=== PATIENT | female | born 1975 | race Caucasian/White ===

== ENCOUNTER 2017-05-29 07:34 | Day surgery (SDC) | payer BC ==
[~2017-05-29 07:34] MED LIST: Lidocaine 1%/Sod Bicarbonate in NS 8.4% 1 ML Syringe PRN; Sodium Chloride 0.9% 10 ML Syringe FLUSH PRN
[2017-05-29] MEDS ORDERED: Ondansetron 4 MG/2 ML SDV ONE (07:35)
[2017-05-29] MEDS ORDERED: Propofol 200 MG/20 ML SDV ONE ×2 (07:35→09:20)
[2017-05-29] MEDS ORDERED: Lactated Ringers 1,000 ML ONE (07:35)
[2017-05-29] MEDS ORDERED: Rocuronium 50 MG/5 ML Vial ONE (07:35)
[2017-05-29] MEDS ORDERED: Lidocaine 1% 4 ML ONE (07:36)
[2017-05-29] MEDS ORDERED: fentaNYL 250 MCG/5 ML SDV ONE (07:36)
[2017-05-29] MEDS ORDERED: Midazolam 1 MG/ML 2 ML SDV ONE (07:36)
[2017-05-29] MEDS ORDERED: Dexamethasone 4 MG/ML 5 ML MDV ONE (07:36)
[2017-05-29] MEDS ORDERED: Clindamycin Phosphate 900 MG in Sodium Chloride 0.9% 100 ML IV ONE (08:00)
[2017-05-29] MEDS: Lactated Ringers 1,000 ML IV SCH ×2 (08:05→12:25)
[2017-05-29] MEDS ORDERED: DEXTROSE 5% IV ONE ×2 (08:45)
[2017-05-29] MEDS ORDERED: GENTAMICIN IV ONE ×2 (08:45)
[2017-05-29] MEDS ORDERED: WATER IV ONE ×2 (08:45)
[2017-05-29] MEDS ORDERED: Scopolamine 1.5 MG Transdermal Patch TRDERM ONE (08:55)
--- NOTE | 2017-05-29 08:57 | PCM.PREANE ---
Preanesthetic Assessment - Anesthesia/Transfusion/Family Hx Anesthesia History: Prior Anesthesia Without Reaction Family History of Anesthesia Reaction: No Transfusion History: No Prior Transfusion(s) Intubation History: Unknown - Physical Assessment NPO Status Date: 05/29/17 NPO Status Time: 23:00 O2 Sat by Pulse Oximetry: 97 Respiratory Rate: 16 Vital Signs: Last Vital Signs Temp 37.2 C 05/29/17 07:40 Pulse 74 05/29/17 07:40 Resp 16 05/29/17 07:40 BP 142/78 H 05/29/17 07:40 Pulse Ox 97 05/29/17 07:40 Height: 1.73 m Weight: 99.79 kg ASA Class: 2 Mental Status: Alert & Oriented x3 Airway Class: Mallampati = 2 Dentition: Reports: Normal Dentition Thyro-Mental Finger Breadths: 3 Mouth Opening Finger Breadths: 3 ROM/Head Extension: Full Lungs: Clear to Auscultation, Normal Respiratory Effort Cardiovascular: Regular Rate, Regular Rhythm - Lab Values: Laboratory Last Values WBC 7.68 K/mm3 (3.98-10.04) 05/27/17 08:08 RBC 4.47 M/mm3 (3.98-5.22) 05/27/17 08:08 Hgb 13.9 gm/L (11.2-15.7) 05/27/17 08:08 Hct 40.8 % (34.1-44.9) 05/27/17 08:08 MCV 91.3 fl (79.4-94.8) 05/27/17 08:08 MCH 31.1 pg (25.6-32.2) 05/27/17 08:08 MCHC 34.1 g/dl (32.2-35.5) 05/27/17 08:08 RDW Std Deviation 40.0 fL (36.4-46.3) 05/27/17 08:08 Plt Count 253 K/mm3 (182-369) 05/27/17 08:08 MPV 10.1 fl (9.4-12.3) 05/27/17 08:08 Neut % (Auto) 60.2 % (34.0-71.1) 05/27/17 08:08 Lymph % (Auto) 29.8 % (19.3-51.7) 05/27/17 08:08 [place] % (Auto) 8.2 % (4.7-12.5) 05/27/17 08:08 Eos % (Auto) 1.3 (0.7-5.8) 05/27/17 08:08 Baso % (Auto) 0.5 % (0.1-1.2) 05/27/17 08:08 Neut # (Auto) 4.62 K/mm3 (1.56-6.13) 05/27/17 08:08 Lymph # (Auto) 2.29 K/mm3 (1.18-3.74) 05/27/17 08:08 [place] # (Auto) 0.63 K/mm3 (0.24-0.36) H 05/27/17 08:08 Eos # (Auto) 0.10 K/mm3 (0.04-0.36) 05/27/17 08:08 Baso # (Auto) 0.04 K/mm3 (0.01-0.08) 05/27/17 08:08 Creatinine 0.9 mg/dL (0.55-1.02) 05/27/17 08:08 Est Cr Clr Drug Dosing TNP 05/27/17 08:08 Estimated GFR (MDRD) > 60 mL/min (>60) 05/27/17 08:08 Urine Color Yellow (Yellow) 05/27/17 08:08 Urine Appearance Clear (Clear) 05/27/17 08:08 Urine pH 6.5 (5.0-8.0) 05/27/17 08:08 Ur Specific [place] 1.020 (1.005-1.030) 05/27/17 08:08 Urine Protein Negative (Negative) 05/27/17 08:08 Urine Glucose (UA) Negative (Negative) 05/27/17 08:08 Urine Ketones 4+ (Negative) H 05/27/17 08:08 Urine Occult Blood Negative (Negative) 05/27/17 08:08 Urine Nitrite Negative (Negative) 05/27/17 08:08 Urine Bilirubin 2+ (Negative) H 05/27/17 08:08 Urine Urobilinogen 0.2 (0.2-1.0) 05/27/17 08:08 Ur Leukocyte Esterase Trace (Negative) H 05/27/17 08:08 Urine HCG, Qual Negative (NEGATIVE) 05/27/17 08:08 Blood Type O POSITIVE 05/27/17 08:08 Gel Antibody Screen Negative 05/27/17 08:08 - Allergies Allergies/Adverse Reactions: Allergies Allergy/AdvReac Type Severity Reaction Status Date / Time Cephalosporins Allergy Other Verified 05/28/17 13:32 - Acknowledgements Anesthesia Type Planned: General Anesthesia Pt an Appropriate Candidate for the Planned Anesthesia: Yes Alternatives and Risks of Anesthesia Discussed w Pt/Guardian: Yes Pt/Guardian Understands and Agrees with Anesthesia Plan: Yes PreAnesthesia Questionnaire HEENT History: Reports: Allergic Rhinitis Cardiovascular History: Reports: None Respiratory History: Reports: None Gastrointestinal History: Reports: None Genitourinary History: Reports: 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 (See Below) Other OB/BYN History: , breast asymmetry, irregular menses, menorrhagia Musculoskeletal History: Reports: None Neurological History: Reports: None Psychiatric History: Reports: Depression Endocrine/Metabolic History: Reports: None Hematologic History: Reports: None Immunologic History: Reports: None Oncologic (Cancer) History: Reports: None Dermatologic History: Reports: None - Past Surgical History Head Surgeries/Procedures: Reports: None HEENT Surgical History: Reports: None Cardiovascular Surgical History: Reports: None Respiratory Surgical History: Reports: None GI Surgical History: Reports: Cholecystectomy Endocrine Surgical History: Reports: None Neurological Surgical History: Reports: None Musculoskeletal Surgical History: Reports: None Oncologic Surgical History: Reports: None Dermatological Surgical History: Reports: None - SUBSTANCE USE Smoking Status *Q: Never Smoker Recreational Drug Use History: No - HOME MEDS Home Medications: Home Meds Rizatriptan Benzoate [Rizatriptan] 10 mg PO ASDIRECTED PRN 05/28/17 [History] Sertraline HCl [Sertraline HCl] 75 mg PO DAILY 05/28/17 [History] - CURRENT (IN HOUSE) MEDS Current Meds: Current Medications Lactated Ringer's (Ringers, Lactated) 1,000 mls @ 125 mls/hr IV ASDIRECTED ETSEFANI Stop: 05/29/17 23:00 Last Admin: 05/29/17 08:05 Dose: 125 mls/hr Gentamicin Sulfate 390 mg/ (Dextrose/Water) 109.75 mls @ 109.75 mls/hr IV ONETIME ONE Stop: 05/29/17 09:44 Lidocaine/Sodium Bicarbonate (Buffered Lidocaine 1% In Ns 8.4%) 0.25 ml .XX ONETIME PRN PRN Reason: Prior to IV Start Stop: 05/29/17 18:00 Last Admin: 05/29/17 08:04 Dose: 0.25 ml Sodium Chloride (Saline Flush) 10 ml FLUSH ASDIRECTED PRN PRN Reason: Keep Vein Open Stop: 05/29/17 18:00 Discontinued Medications Dexamethasone (Dexamethasone) Confirm Administered Dose 20 mg .ROUTE .STK-MED ONE Stop: 05/29/17 07:37 Fentanyl (Sublimaze) Confirm Administered Dose 250 mcg .ROUTE .STK-MED ONE Stop: 05/29/17 07:37 Clindamycin Phosphate 900 mg/ (Sodium Chloride) 106 mls @ 212 mls/hr IV ONETIME ONE Stop: 05/29/17 08:29 Lactated Ringer's (Ringers, Lactated) Confirm Administered Dose 1,000 mls @ as directed .ROUTE .STK-MED ONE Stop: 05/29/17 07:36 Lidocaine HCl (Xylocaine-Mpf 1%) Confirm Administered Dose 4 mls @ as directed .ROUTE .STK-MED ONE Stop: 05/29/17 07:37 Lidocaine/Epinephrine (Xylocaine 1% With Epinephrine 1:100,000) Confirm Administered Dose 20 ml .ROUTE .STK-MED ONE Stop: 05/29/17 08:26 Midazolam HCl (Versed 1 Mg/Ml) Confirm Administered Dose 2 mg .ROUTE .STK-MED ONE Stop: 05/29/17 07:37 Ondansetron HCl (Zofran) Confirm Administered Dose 4 mg .ROUTE .STK-MED ONE Stop: 05/29/17 07:36 Propofol (Diprivan 20 Ml) Confirm Administered Dose 200 mg .ROUTE .STK-MED ONE Stop: 05/29/17 07:36 Rocuronium [place] (Zemuron) Confirm Administered Dose 50 mg .ROUTE .STK-MED ONE Stop: 05/29/17 07:36 Sodium Chloride (Normal Saline) Confirm Administered Dose 50 ml .ROUTE .STK-MED ONE Stop: 05/29/17 08:27
[2017-05-29] MEDS: Sodium Chloride 0.9% 50 ML SDV ONE ×2 (09:40→09:46)
[2017-05-29] MEDS: Lidocaine 1% with EPINEPHrine 1:100,000 20 ML MDV ONE ×2 (09:40→09:46)
[2017-05-29] MEDS ORDERED: HYDROmorphone 0.5 MG/0.5 ML Syringe IVPUSH PRN (09:58)
[2017-05-29] MEDS ORDERED: fentaNYL 100 MCG/2 ML SDV IVPUSH PRN (09:58)
[2017-05-29] MEDS ORDERED: Haloperidol Lactate 5 MG/ML SDV IVPUSH PRN (09:58)
[2017-05-29] MEDS ORDERED: HYDROmorphone 1 MG/ML Syringe ONE (09:59)
[2017-05-29] MEDS ORDERED: Ketorolac 30 MG/ML SDV ONE (10:24)
[2017-05-29] MEDS ORDERED: Neostigmine Methylsulfate 10 MG/10 ML MDV ONE (10:25)
--- NOTE | 2017-05-29 10:44 | PCM.POSTAN ---
POST ANESTHESIA ASSESSMENT - MENTAL STATUS Mental Status: Alert, Oriented - VITAL SIGNS Pulse Rate: 88 SaO2: 97 Resp Rate: 10 Blood Pressure: 126/79 Temperature: 36.5 C - RESPIRATORY Respiratory Status: Respiratory Rate WNL, Airway Patent, O2 Saturation Stable - CARDIOVASCULAR CV Status: Pulse Rate WNL, Blood Pressure Stable - GASTROINTESTINAL GI Status: No Symptoms - PAIN Pain Score: 0 - POST OP HYDRATION Hydration Status: Adequate & Stable
[2017-05-29] MEDS ORDERED: Ondansetron 4 MG/2 ML SDV IVPUSH PRN (11:15)
[2017-05-29] MEDS ORDERED: Acetaminophen/oxyCODONE 325-5 MG Tab PO PRN (11:15)
--- NOTE | 2017-05-29 11:23 | PCM.OPNOTE ---
- General Post-Op/Procedure Note Date of Surgery/Procedure: 05/29/17 Operative Procedure(s): Total vaginal hysterectomy with bilateral salpingectomy. Excision of vulvar lesion Pre Op Diagnosis: Menorrhagia, irregular uterine bleeding Post-Op Diagnosis: Same, vulvar lesion Anesthesia Technique: General ET Tube Other Anesthesia Type: Lidocaine quarter percent with [id number] mL local Primary Surgeon: Justino Saleh Secondary Surgeon: Andrei Jeffrey Anesthesia Provider: Florencia Bryan Reason Cork Mixer Was Necessary: Retraction, patient safety, quality of care Role of Cork Mixer: Retraction Fluid Replacement, Intraop: 1,000 EBL in mLs: 100 Complications: None Condition: Good Free Text/Narrative:: Surgery duration 35 minutes Procedure: The patient was placed in supine position on the operating table. General endotracheal anesthesia was accomplished. After positioning, and adequate prep and drape, the procedure was then performed. Sterile speculum was placed in the vagina and cervix was visualized. Cervix was injected with lidocaine quarter percent with [id number] mL used. A full circumference incision was made in the cervical epithelium. The bladder was pushed well back off cervix. Posterior cul-de-sac was then entered sharply without problems. Left uterosacral was crossclamped with a LigaSure vessel closure system. The left uterosacral and then the right uterosacral ligament pedicles were developed using the Enseal system. The anterior cul-de-sac was then entered without problems and the uterine vasculature, cardinal ligament and broad ligament then developed using Enseal vessel closure system. The uterus was inverted at this time and upper broad ligament fallopian tube pedicles were crossclamped with Katy clamps. Specimen was totally removed. Both these pedicles were then secured with a Katy stitch of #1 Vicryl. Left and right fallopian tube was normal in appearance.. Using Enseal vessel closure system each of the tubes was then removed and sent with the specimen. Both ovaries were removed per patient's desire. The patient was found to be hemostatically intact at this time. A pursestring suture was and placed in the peritoneal cavity externalizing pedicles in case of bleeding. Vaginal cuff was sutured for hemostatic reasons with a running locked suture of 0 Monocryl from the 2 o'clock position to the 10 o'clock position posteriorly. Vaginal cuff was then closed from right to left side with a running locked suture of 0 Monocryl. Patient was returned to supine position and awakened from general endotracheal anesthesia. She tolerated the procedure was then left the operating room in satisfactory condition.
[2017-05-29 14:44] VITALS: BP 96/60
== END 2017-05-29 14:30 | disposition home or self-care (01) ==
LOC: JD.SDS 07:34
PROVIDERS: ATTEND Obstetrics & Gynecology
DX: N72 Inflammatory disease of cervix uteri (principal); N88.0 Leukoplakia of cervix uteri; D04.8 Carcinoma in situ of skin of other sites; N88.8 Other specified noninflammatory disorders of cervix uteri; D25.1 Intramural leiomyoma of uterus; D25.0 Submucous leiomyoma of uterus; N83.8 Other noninflammatory disorders of ovary, fallopian tube and broad ligament; Z88.1 Allergy status to other antibiotic agents; F32.9 Major depressive disorder, single episode, unspecified; G47.30 Sleep apnea, unspecified; Z79.899 Other long term (current) drug therapy
CPT/HCPCS: 11621; 36415; 58262; 81003; 81025; 82565; 85025; 86850; 86900; 86901; A9270; J1100; J1170; J1580; J1885; J2250; J2405; J2710; J3010; J7030; J7060; J7120; 00840; J2704

== ENCOUNTER 2021-04-06 22:44 | Emergency (ER) | payer OTHER ==
[2021-04-06 22:57] VITALS: BP 127/85; PULSE 106
--- NOTE | 2021-04-07 00:18 | EDM.PDOC ---
ED HPI GENERAL MEDICAL PROBLEM - General Chief Complaint: Respiratory Problem Stated Complaint: COVID+ Time Seen by Provider: 04/07/21 00:10 Source of Information: Reports: Patient History Limitations: Reports: No Limitations - History of Present Illness INITIAL COMMENTS - FREE TEXT/NARRATIVE: Patient is a 45-year-old female with a history of COVID-19 infection presents with a chief complaint of fevers, body aches, fatigue, shortness of breath. Patient states she has had the symptoms since 1 week ago Thursday. She feels like she is not getting any better. Patient denies any associated chest pain. Reports the body aches are diffuse. She has been using some Tylenol with only mild relief. Patient states shortness of breath seems to be getting worse but denies any pain with inspiration or exertional symptoms. Patient has no swelling in her legs or history of DVT/PE. No prior treatment for COVID-19. Patient is unvaccinated against COVID-19. Generalized Pain Score (Numeric/FACES): 8 - Related Data Allergies Allergy/AdvReac Type Severity Reaction Status Date / Time Cephalosporins Allergy Severe Other Verified 04/06/21 22:57 Home Meds: Home Meds Sertraline HCl 100 mg PO DAILY 05/28/17 [History] Ibuprofen 600 mg PO Q4H PRN #30 tablet 05/29/17 [Rx] SUMAtriptan succinate [Imitrex] 100 mg PO DAILY PRN 04/06/21 [History] Benzonatate [Tessalon Perle] 100 mg PO BID #10 capsule 04/07/21 [Rx] Past Medical History HEENT History: Reports: Allergic Rhinitis Cardiovascular History: Reports: None Respiratory History: Reports: None Gastrointestinal History: Reports: None Genitourinary History: Reports: 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) Other CAT CRACKER OPERATOR History: , breast asymmetry, irregular menses, menorrhagia Musculoskeletal History: Reports: None Neurological History: Reports: Migraines Psychiatric History: Reports: Depression Endocrine/Metabolic History: Reports: Obesity/BMI 30+ Hematologic History: Reports: None Immunologic History: Reports: None Oncologic (Cancer) History: Reports: None Dermatologic History: Reports: None - Infectious Disease History Infectious Disease History: Reports: Novel Coronavirus - Past Surgical History GI Surgical History: Reports: Cholecystectomy Social & Family History - Tobacco Use Tobacco Use Status *Q: Never Tobacco User - Caffeine Use Caffeine Use: Reports: Coffee - Recreational Drug Use Recreational Drug Use: No ED ROS GENERAL - Review of Systems Review Of Systems: See Below Free Text/Narrative/Comment: In addition to that documented in the HPI above, the additional ROS was obtained: Constitutional: Per HPI Eyes: Denies vision changes ENMT: Denies sore throat CV: Denies chest pain Resp: Per HPI GI: Mild diarrhea : Denies painful urination MSK: Denies recent trauma Skin: Denies new rashes Neuro: Denies new numbness or tingling or weakness Endocrine: Denies unexpected weight loss Heme: Denies bleeding disorders ED EXAM, GENERAL - Physical Exam Exam: See Below Free Text/Narrative:: I have reviewed the triage vital signs Const: Well nourished, well developed, appears stated age Eyes: Pupils Equal and reactive to light bilaterally, no conjunctival injection HENT: No signs of trauma or swelling, Neck supple without meningismus CV: Mild tachycardia with regular rhythm, Warm, well-perfused extremities RESP: Unlabored respiratory effort GI: soft, non-tender, non-distended, no masses MSK: No gross deformities appreciated Skin: Warm, dry. No rashes Neuro: Alert, mold sheet cleaner II-XII grossly intact. Sensation and motor function of extremities grossly intact. Psych: Appropriate mood and affect. Course - Vital Signs Last Recorded V/S: Last Vital Signs Temp 36.6 C 04/06/21 22:55 Pulse 106 H 04/06/21 22:55 Resp 20 04/06/21 22:55 BP 127/85 04/06/21 22:55 Pulse Ox 91 L 04/06/21 22:55 - Orders/Labs/Meds Orders: Active Orders 24 hr Category Date Time Status Chest 1V Frontal [CR] Stat Exams 04/06/21 23:06 Taken Labs: Laboratory Tests 04/06/21 04/06/21 04/06/21 Range/Units 23:21 23:21 23:21 WBC 6.54 (3.98-10.04) K/mm3 RBC 4.48 (3.98-5.22) M/mm3 Hgb 13.8 (11.2-15.7) gm/dl Hct 39.9 (34.1-44.9) % MCV 89.1 (79.4-94.8) fl MCH 30.8 (25.6-32.2) pg MCHC 34.6 (32.2-35.5) g/dl RDW Std Deviation 40.0 (36.4-46.3) fL Plt Count 156 L (182-369) K/mm3 MPV 10.0 (9.4-12.3) fl Neut % (Auto) 74.1 H (34.0-71.1) % Lymph % (Auto) 21.1 (19.3-51.7) % [place] % (Auto) 4.3 L (4.7-12.5) % Eos % (Auto) 0 L (0.7-5.8) Baso % (Auto) 0.2 (0.1-1.2) % Neut # (Auto) 4.85 (1.56-6.13) K/mm3 Lymph # (Auto) 1.38 (1.18-3.74) K/mm3 [place] # (Auto) 0.28 (0.24-0.36) K/mm3 Eos # (Auto) 0.00 L (0.04-0.36) K/mm3 Baso # (Auto) 0.01 (0.01-0.08) K/mm3 PT 10.7 (9.7-12.0) SECONDS INR 0.96 D-Dimer, Quantitative 0.98 H (0.19-0.50) mg/L Sodium 133 L (136-145) mEq/L Potassium 3.3 L (3.5-5.1) mEq/L Chloride 101 (98-107) mEq/L Carbon Dioxide 24 (21-32) mEq/L Anion Gap 11.3 (5-15) BUN 12 (7-18) mg/dL Creatinine 0.9 (0.55-1.02) mg/dL Est Cr Clr Drug Dosing 78.79 mL/min Estimated GFR (MDRD) > 60 (>60) mL/min BUN/Creatinine Ratio 13.3 L (14-18) Glucose 137 H (70-99) mg/dL Calcium 8.4 L (8.5-10.1) mg/dL Total Bilirubin 0.7 (0.2-1.0) mg/dL AST 30 (15-37) U/L ALT 25 (14-59) U/L Alkaline Phosphatase 42 L (46-116) U/L Total Protein 7.0 (6.4-8.2) g/dl Albumin 3.2 L (3.4-5.0) g/dl Globulin 3.8 gm/dL Albumin/Globulin Ratio 0.8 L (1-2) Departure - Departure Time of Disposition: 00:18 Disposition: Home, Self-Care 01 Clinical Impression: Pneumonia due to COVID-19 virus - Discharge Information Prescriptions: Benzonatate [Tessalon Perle] 100 mg PO BID #10 capsule Referrals: Krystyna Rivera, DISPUTE RESOLUTION SPECIALIST [Primary Care Provider] - Forms: ED Department Discharge Sepsis Event Note (ED) - Evaluation Sepsis Screening Result: No Definite Risk - Focused Exam Vital Signs: Vital Signs Temp Pulse Resp BP Pulse Ox 04/06/21 22:55 36.6 C 106 H 20 127/85 91 L - My Orders Last 24 Hours: My Active Orders 04/06/21 23:06 Chest 1V Frontal [CR] Stat - Assessment/Plan Last 24 Hours: My Active Orders 04/06/21 23:06 Chest 1V Frontal [CR] Stat Assessment:: Patient is 45-year-old female presenting to the emergency room with signs and symptoms consistent with COVID-19. Patient maintaining a pulse oxygenation of 92 to 94% on room air. No evidence of respiratory distress. Laboratory studies and chest x-ray consistent with COVID-19. Mild elevation of D-dimer which is more consistent with COVID-19 picture as opposed to pulmonary embolism. No evidence of severe anemia or pneumothorax. Patient instructed that these are symptoms consistent with her clinical disease process. Given appropriate return precautions. All questions were addressed and answered. Patient agrees with plan of care.
--- NOTE | 2021-04-07 09:14 | CR ---
Chest: Frontal view of the chest was obtained. Comparison: No prior chest imaging is available. Heart size and mediastinum are normal. Patchy increased density is seen on both sides of the chest. Bony structures show nothing acute. Impression: 1. Findings suspicious for moderate COVID pneumonia on both sides of the chest. Diagnostic code #3
== END 2021-04-07 01:21 | disposition home or self-care (01) ==
LOC: JD.ED 22:44
DX: U07.1 COVID-19 (principal); J12.82 Pneumonia due to coronavirus disease 2019; E66.9 Obesity, unspecified; Z68.35 Body mass index [BMI] 35.0-35.9, adult; Z88.1 Allergy status to other antibiotic agents; Z79.899 Other long term (current) drug therapy
CPT/HCPCS: 36415; 71045; 71045-26; 80053; 85025; 85379; 85610; 99283-25